=== PATIENT | female | born 1960 | race Caucasian/White ===

== ENCOUNTER 2017-06-27 08:09 | Day surgery (SDC) | payer BC ==
[2017-06-27] MEDS ORDERED: Sodium Bicarbonate 2.4 MEQ/5 ML ONE (08:19)
[2017-06-27] MEDS ORDERED: Lidocaine 1% PF 5 ML VIAL ONE (08:19)
[2017-06-27 10:16] VITALS: BP 113/64; TEMP 98
--- NOTE | 2017-06-27 11:21 | ULT ---
SONOGRAPHIC GUIDED FINE NEEDLE ASPIRATION LEFT THYROID LOBE MASS: Date: 06/27/17 HISTORY: Left thyroid mass. FINDINGS: After explaining the procedure and answering all questions, the oval hypoechoic nodule in the left t hyroid lobe containing microcalcifications was again visualized. Sterile technique, buffered local a nesthesia, sonographic guidance, and a medial approach were used to carefully advance a 25 gauge nee dle to the level of the mass. Position was confirmed with sonography. Four FNA samples were obtained and submitted to pathology for evaluation. Postprocedure imaging shows no evidence of complication. The patient tolerated the procedure well and was dismissed in good condition. IMPRESSION: Technically successful sonographic guided FNA left thyroid lobe mass. Pathology is pending. POS: [facility]
== END 2017-06-27 09:00 | disposition home or self-care (01) ==
LOC: ULT 08:09
PROVIDERS: ATTEND Otolaryngology Plastic Surgery within the Head & Neck
PROC: 0GBG3ZX Excision of Left Thyroid Gland Lobe, Percutaneous Approach, Diagnostic (ICD-10-PCS; principal; 2017-06-27)
DX: E04.1 Nontoxic single thyroid nodule (principal); E78.5 Hyperlipidemia, unspecified; K21.9 Gastro-esophageal reflux disease without esophagitis; F41.9 Anxiety disorder, unspecified; Z88.0 Allergy status to penicillin; Z88.1 Allergy status to other antibiotic agents; Z79.899 Other long term (current) drug therapy; Z82.49 Family history of ischemic heart disease and other diseases of the circulatory system; Z98.890 Other specified postprocedural states
CPT/HCPCS: 10022; 76942; 88173; J2001

== ENCOUNTER 2017-12-26 14:16 | Outpatient (CLI) | payer BC | END 2017-12-26 14:17 | disposition home or self-care (01) | LOC: BICULT 14:16 | PROVIDERS: ATTEND Otolaryngology Plastic Surgery within the Head & Neck | DX: E04.1 Nontoxic single thyroid nodule (principal) | CPT/HCPCS: 76536 ==

== ENCOUNTER 2018-03-21 09:56 | Outpatient (CLI) | payer BC ==
--- NOTE | 2018-03-21 11:20 | ULT ---
ULTRASOUND GALLBLADDER RIGHT UPPER QUADRANT: Date: 03/21/18 HISTORY: Right upper quadrant pain. COMPARISON: None. FINDINGS: Visualized portions of the pancreas are unremarkable. Hypoechoic foci are present in the liver with p osterior acoustic enhancement suggesting cysts. Liver measures 14.3 cm in length. Gallbladder wall thickness is normal. Negative sonographic Deng's sign. Common bile duct measures 4.0 mm. Right kidney measures 9.9 x 4.6 x 4.6 cm with an echogenic focus intrapolar kidney measuring 5.0 mm, likely a calcification. Also, hypoechoic focus measuring up to 1.1 cm in the intrapolar right kidney, not definitively a cyst. IMPRESSION: 1. No acute gallbladder pathology. 2. Hypoechoic focus intrapolar right kidney measuring up to 1.1 cm. Follow-up ultrasound in 6 months recommended versus renal protocol CT/MRI. This is not definitively a cyst. POS: [facility]
== END 2018-03-21 09:57 | disposition home or self-care (01) ==
LOC: SCSULT 09:56
PROVIDERS: ATTEND Internal Medicine
DX: R10.11 Right upper quadrant pain (principal); R93.421 Abnormal radiologic findings on diagnostic imaging of right kidney
CPT/HCPCS: 76705

== ENCOUNTER 2018-03-23 15:00 | Outpatient (CLI) | payer BC ==
[~2018-03-23 15:00] MED LIST: ISOVUE-370 76%-LOCM 1 ML ONE
== END 2018-03-23 15:01 | disposition home or self-care (01) ==
LOC: BICCT 15:00
PROVIDERS: ATTEND Internal Medicine
DX: N28.9 Disorder of kidney and ureter, unspecified (principal); K76.89 Other specified diseases of liver
CPT/HCPCS: 74178

== ENCOUNTER 2018-04-17 13:45 | Outpatient (CLI) | payer BC | END 2018-04-17 13:46 | disposition home or self-care (01) | LOC: BICMAMMO 13:45 | PROVIDERS: ATTEND Obstetrics & Gynecology | DX: Z12.31 Encounter for screening mammogram for malignant neoplasm of breast (principal); R92.1 Mammographic calcification found on diagnostic imaging of breast; Z80.3 Family history of malignant neoplasm of breast | CPT/HCPCS: 77063; 77067 ==

== ENCOUNTER 2018-09-15 17:49 | Emergency (ER) | payer BC ==
[2018-09-15] MEDS ORDERED: traMADol HCl 50 MG TAB ONE (18:25)
[2018-09-15] MEDS ORDERED: Lorazepam 2 MG/ML VIAL ONE (18:26)
--- NOTE | 2018-09-15 18:59 | CT ---
CT HEAD WITHOUT CONTRAST: 09/15/18 Multiple axial tomograms obtained through the head without IV enhancement. INDICATIONS: Head pain, anxiety symptoms. Discomfort right ear. FINDINGS: Ventricles have normal size and position. There is no evidence of mass, hemorrhage, or infarct. The paranasal sinuses and mastoids are well aerated. There is evidence of narrowing of the right exte rnal ear canal. External otitis should be considered. Both middle ear cavities show normal aeration. IMPRESSION: 1. No acute intracranial abnormality. 2. Narrowing of the right external auditory canal. External otitis should be considered. POS: [facility]
--- NOTE | 2018-09-15 19:01 | RAD ---
TWO VIEWS CHEST: 09/15/18 INDICATION: Chest pain. The lung [place] appear clear. No infiltrate seen. Heart and mediastinum unremarkable. Mild thoracic s coliotic curvature to the right is noted. IMPRESSION: No acute lung process. POS: [facility]
[2018-09-15 19:03] LABS: #Basophils 0.1 thou/uL (0.0-0.2); #Eosinphils 0.1 thou/uL (0.0-0.7); #Lymphocytes 2.1 thou/uL (1.20-3.40); #Neutrophils 8.2 thou/uL (1.40-6.50); %Basophils 0.7 % (0.0-1.0); %Eosinophils 0.7 % (0.0-10.0); %Lymphocytes 18.5 % (21.0-51.0); %Monocytes 8.3 % (0.0-10.0); %Neutrophils 71.9 % (42.0-75.0); Hemoglobin 13.2 g/dL (12.0-16.0); Mean Corpuscular HGB CONC 34.7 g/dL (32.0-36.0); Mean Corpuscular Hemoglobin 29.2 pg (27.0-31.0); Mean Corpuscular Volume 84.2 fL (78.0-98.0); Mean Platelet Volume 6.2 fL (7.4-10.4); Platelet Count 195 thou/uL (130-400); RBC Distribution Width 10.8 % (11.5-14.5); Red Blood Cell (RBC) Count 4.52 mill/uL (4.20-5.40); White Blood Cell (WBC) Count 11.5 thou/uL (4.8-10.8)
[2018-09-15 19:13] LABS: ALT (SGPT) 18 U/L (8-55); AST (SGOT) 20 U/L (5-34); Albumin 4.3 g/dL (3.5-5.0); Alkaline Phosphatase 95 U/L (40-150); Anion Gap 16 mmol/L (10-20); BUN (Urea Nitrogen) 10 mg/dL (9.8-20.1); Bilirubin, Total 0.4 mg/dL (0.2-1.2); Calc. Creatinine Clearance 0 mL/min (70-130); Calcium 10.3 mg/dL (7.8-10.44); Carbon Dioxide 22 mmol/L (22-29); Chloride 105 mmol/L (98-107); Estimated GFR-MDRD 82; Glucose 86 mg/dL (70-105); Potassium 4.2 mmol/L (3.5-5.1); Protein, Total 7.3 g/dL (6.0-8.3); Sodium 139 mmol/L (136-145)
[2018-09-15] MEDS ORDERED: Ondansetron ODT 4 MG TAB ONE (19:13)
[2018-09-15] MEDS ORDERED: Ondansetron PF 4 MG/2 ML Vial ONE (19:24)
== END 2018-09-15 20:10 | disposition home or self-care (01) ==
LOC: SCSER 17:49
DX: H60.91 Unspecified otitis externa, right ear (principal); R07.9 Chest pain, unspecified; F41.9 Anxiety disorder, unspecified
CPT/HCPCS: 70450; 71046; 80053; 84484; 85025; 93005; 96374; 96375; J2060; J2405; Q0162

== ENCOUNTER 2019-07-31 15:37 | Outpatient (CLI) | payer BC ==
--- NOTE | 2019-07-31 16:06 | MMO ---
Bilateral MAMMO Bilat Screen [facility]. CLINICAL HISTORY: Patient is 59 years old and is seen for screening. The patient has the following family history of breast cancer: maternal grandmother, malignant (generic) and maternal aunt, malignant (generic), X 6 GREAT AUNTS. The patient has no personal history of cancer. VIEWS: The views performed were: bilateral craniocaudal with tomosynthesis; bilateral mediolateral oblique with tomosynthesis; and bilateral exaggerated craniocaudal. FILMS COMPARED: The present examination has been compared to prior imaging studies performed at [facility] on 02/25/2015, 04/07/2016, 04/12/2017 and 04/17/2018. This study has been interpreted with the assistance of computer-aided detection. MAMMOGRAM FINDINGS: The breasts are heterogeneously dense, which could obscure a lesion on mammography. There are no suspicious masses, suspicious calcifications, or new areas of architectural distortion. IMPRESSION: THERE IS NO MAMMOGRAPHIC EVIDENCE OF MALIGNANCY. A ROUTINE FOLLOW-UP MAMMOGRAM IN 1 YEAR IS RECOMMENDED. THE RESULTS OF THIS EXAM WERE SENT TO THE PATIENT. ACR BI-RADS Category 1 - Negative MAMMOGRAPHY NOTE: 1. A negative mammogram report should not delay a biopsy if a dominant of clinically suspicious mass is present. 2. Approximately 10% to 15% of breast cancers are not detected by mammography. 3. Adenosis and dense breasts may obscure an underlying neoplasm. Reported by: PONCHO HORNE MD Electonically Signed: [id number]
== END 2019-07-31 15:38 | disposition home or self-care (01) ==
LOC: BICMAMMO 15:37
PROVIDERS: ATTEND Obstetrics & Gynecology
DX: Z12.31 Encounter for screening mammogram for malignant neoplasm of breast (principal); Z80.3 Family history of malignant neoplasm of breast
CPT/HCPCS: 77063; 77067

== ENCOUNTER 2020-08-19 15:14 | Outpatient (CLI) | payer BC ==
--- NOTE | 2020-08-19 15:41 | MMO ---
Bilateral MAMMO Bilat Screen [facility]. CLINICAL HISTORY: Patient is 60 years old and is seen for screening. The patient has the following family history of breast cancer: maternal grandmother, malignant (generic) and maternal aunt, malignant (generic), X 6 GREAT AUNTS. The patient has no personal history of cancer. VIEWS: The views performed were: bilateral craniocaudal with tomosynthesis; bilateral mediolateral oblique with tomosynthesis; and right exaggerated craniocaudal. FILMS COMPARED: The present examination has been compared to prior imaging studies performed at [facility] on 04/07/2016, 04/12/2017, 04/17/2018 and 07/31/2019. This study has been interpreted with the assistance of computer-aided detection. MAMMOGRAM FINDINGS: The breasts are heterogeneously dense, which could obscure a lesion on mammography. There are no suspicious masses, suspicious calcifications, or new areas of architectural distortion. IMPRESSION: THERE IS NO MAMMOGRAPHIC EVIDENCE OF MALIGNANCY. A ROUTINE FOLLOW-UP MAMMOGRAM IN 1 YEAR IS RECOMMENDED. THE RESULTS OF THIS EXAM WERE SENT TO THE PATIENT. ACR BI-RADS Category 1 - Negative MAMMOGRAPHY NOTE: 1. A negative mammogram report should not delay a biopsy if a dominant of clinically suspicious mass is present. 2. Approximately 10% to 15% of breast cancers are not detected by mammography. 3. Adenosis and dense breasts may obscure an underlying neoplasm. Reported by: LUZ CLARKE MD Electonically Signed: [id number]
== END 2020-08-19 15:15 | disposition home or self-care (01) ==
LOC: BICMAMMO 15:14
PROVIDERS: ATTEND Obstetrics & Gynecology
DX: Z12.31 Encounter for screening mammogram for malignant neoplasm of breast (principal); Z80.3 Family history of malignant neoplasm of breast
CPT/HCPCS: 77063; 77067

== ENCOUNTER 2021-06-22 10:40 | Outpatient (CLI) | payer BC | END 2021-06-22 10:41 | disposition home or self-care (01) | LOC: BICULT 10:40 | PROVIDERS: ATTEND Internal Medicine | DX: E04.1 Nontoxic single thyroid nodule (principal) | CPT/HCPCS: 76536 ==

== ENCOUNTER 2021-08-23 11:18 | Outpatient (CLI) | payer BC | END 2021-08-23 11:19 | disposition home or self-care (01) | LOC: BICMAMMO 11:18 | PROVIDERS: ATTEND Obstetrics & Gynecology | DX: Z12.31 Encounter for screening mammogram for malignant neoplasm of breast (principal); Z80.3 Family history of malignant neoplasm of breast | CPT/HCPCS: 77063; 77067 ==

== ENCOUNTER 2022-09-07 12:51 | Outpatient (CLI) | payer BC | END 2022-09-07 12:52 | disposition home or self-care (01) | LOC: BICMAMMO 12:51 | PROVIDERS: ATTEND Obstetrics & Gynecology | DX: Z12.31 Encounter for screening mammogram for malignant neoplasm of breast (principal); Z80.3 Family history of malignant neoplasm of breast | CPT/HCPCS: 77063; 77067 ==

== ENCOUNTER 2023-09-11 09:53 | Outpatient (CLI) | payer BC | END 2023-09-11 09:54 | disposition home or self-care (01) | LOC: BICMAMMO 09:53 | PROVIDERS: ATTEND Obstetrics & Gynecology | DX: Z12.31 Encounter for screening mammogram for malignant neoplasm of breast (principal); Z80.3 Family history of malignant neoplasm of breast | CPT/HCPCS: 77063; 77067 ==

== ENCOUNTER 2023-10-31 14:15 | Outpatient (CLI) | payer BC | END 2023-10-31 14:16 | disposition home or self-care (01) | LOC: BICRAD 14:15 | PROVIDERS: ATTEND Internal Medicine | DX: R20.2 Paresthesia of skin (principal); M47.816 Spondylosis without myelopathy or radiculopathy, lumbar region | CPT/HCPCS: 72100 ==

== ENCOUNTER 2024-03-01 10:26 | Outpatient (CLI) | payer BC | END 2024-03-01 10:27 | disposition home or self-care (01) | LOC: BICCT 10:26 | PROVIDERS: ATTEND Internal Medicine | DX: R10.9 Unspecified abdominal pain (principal); R91.1 Solitary pulmonary nodule | CPT/HCPCS: 74177 ==

== ENCOUNTER 2024-03-08 11:05 | Outpatient (CLI) | payer BC | END 2024-03-08 11:06 | disposition home or self-care (01) | LOC: BICCT 11:05 | PROVIDERS: ATTEND Internal Medicine | DX: R91.8 Other nonspecific abnormal finding of lung field (principal) | CPT/HCPCS: 71250 ==

== ENCOUNTER 2024-10-03 12:35 | Outpatient (CLI) | payer BC | END 2024-10-03 12:36 | disposition home or self-care (01) | LOC: BICCT 12:35 | PROVIDERS: ATTEND Internal Medicine | DX: R91.8 Other nonspecific abnormal finding of lung field (principal) | CPT/HCPCS: 71250 ==

== ENCOUNTER 2024-10-07 11:54 | Outpatient (CLI) | payer BC | END 2024-10-07 11:55 | disposition home or self-care (01) | LOC: BICMAMMO 11:54 | PROVIDERS: ATTEND Obstetrics & Gynecology | DX: Z12.31 Encounter for screening mammogram for malignant neoplasm of breast (principal); Z80.3 Family history of malignant neoplasm of breast | CPT/HCPCS: 77063; 77067 ==